=== PATIENT | female | born 1990 | race Caucasian/White ===

== ENCOUNTER 2017-05-26 16:23 | Emergency (ER) | payer OTHER ==
[2017-05-26 16:43] VITALS: BP 119/76; PULSE 87; TEMP 98.1; BMI 20.3
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
[2017-05-26] MEDS ORDERED: ONDANSETRON *ODT* 4 MG TABLET SL ONE (20:14)
[2017-05-26] MEDS ORDERED: ONDANSETRON *ODT* 4 MG TABLET ONE (20:17)
== END 2017-05-26 20:19 | disposition home or self-care (01) ==
LOC: JERFT 16:23
DX: G44.319 Acute post-traumatic headache, not intractable (principal); Y04.2XXA Assault by strike against or bumped into by another person, initial encounter; Y93.89 Activity, other specified; Y92.038 Other place in apartment as the place of occurrence of the external cause; Y99.8 Other external cause status; Y07.9 Unspecified perpetrator of maltreatment and neglect
CPT/HCPCS: 70450-TC; 84703; 99281-25